=== PATIENT | male | born 1945 ===

== ENCOUNTER 2016-10-04 13:41 | Emergency (ER) | payer MEDICARE ==
[2016-10-04 13:53] VITALS: TEMP 98.1; O2SAT 99
[2016-10-04] MEDS ORDERED: Sodium Chloride 0.9% 1,000 ML IV ONE (14:25)
[2016-10-04] MEDS ORDERED: Sodium Chloride 0.9% 1,000 ML ONE (14:43)
[2016-10-04 14:52] LABS: BASO # 0.1 K/uL (0.0-0.2); BASO % 1.1 % (0.0-2.0); EOS # 0.5 K/uL (0.0-0.7); EOS % 7.4 % (0.0-4.0); HEMATOCRIT 44.7 % (35.0-51.0); LYMPH # 1.6 K/uL (1.0-4.3); MEAN CELL VOLUME 85.7 fL (80.0-94.0); MEAN CORPUSCULAR HEMOGLOBIN 28.1 pg (27.0-31.0); MEAN CORPUSCULAR HGB CONC 32.8 g/dL (33.0-37.0); MEAN PLATELET VOLUME 8.3 fL (7.2-11.7); MONO # 0.5 K/uL (0.0-0.8); MONO % 7.4 % (0.0-10.0); NRBC % 0.1 % (0.0-2.0); RED CELL DISTRIBUTION WIDTH 14.3 % (11.5-14.5); WHITE BLOOD COUNT 6.9 K/uL (4.8-10.8)
[2016-10-04 14:58] LABS: RBC URINE < 1 /hpf (0-3); URINE BILIRUBIN NEGATIVE (NEGATIVE); URINE BLOOD NEGATIVE (NEGATIVE); URINE COLOR Yellow (YELLOW); URINE GLUCOSE (UA) NORMAL (Normal); URINE KETONE NEGATIVE (NEGATIVE); URINE LEUKOCYTE ESTERASE NEG Leu/uL (Negative); URINE PROTEIN NEGATIVE (NEGATIVE); URINE UROBILINOGEN NORMAL mg/dL (0.2-1.0); WBC URINE 1 /hpf (0-5)
[2016-10-04 15:00] LABS: CHLORIDE 104 mmol/L (98-107)
[2016-10-04 15:01] LABS: POTASSIUM 4.6 mmol/L (3.6-5.2); SODIUM 141 mmol/L (132-148)
[2016-10-04 15:03] LABS: ALB/GLOB RATIO 1.2 (1.0-2.1); ALKALINE PHOSPHATASE 80 U/L (38-126); AST/SGOT 29 U/L (17-59); BLOOD UREA NITROGEN 19 mg/dL (9-20); CARBON DIOXIDE 28 mmol/L (22-30); GFR AFRICAN-AMERICAN > 60; TOTAL PROTEIN 7.9 g/dL (6.3-8.3)
[2016-10-04 15:04] LABS: ALT/SGPT 21 U/L (21-72); CALCIUM 9.1 mg/dl (8.6-10.4); GLUCOSE,RANDOM 97 mg/dL (75-110)
--- NOTE | 2016-10-04 15:08 | C.PDOC ---
History Of Present Illness 71 y/o male sent from [facility] (Formerly [facility]) with complains of LLQ abdominal pain for 2 days with bloody stools. Denies fever, nausea, vomiting, diarrhea or any other complaints. Time Seen by Provider: 10/04/16 14:05 Chief Complaint (Nursing): Abdominal Pain History Per: Patient History/Exam Limitations: no limitations Onset/Duration Of Symptoms: Days Current Symptoms Are (Timing): Better Severity: Mild Location Of Pain/Discomfort: LLQ Radiation Of Pain To:: None Quality Of Discomfort: "Pain" Associated Symptoms: denies: Fever, Nausea, Vomiting, Diarrhea Exacerbating Factors: None Alleviating Factors: None Recent travel outside of the [place]: No Past Medical History Reviewed: Historical Data, Nursing Documentation, Vital Signs Vital Signs: Last Vital Signs Temp 98.1 F 10/04/16 13:50 Pulse 60 10/04/16 17:08 Resp 18 10/04/16 17:08 BP 125/63 10/04/16 17:08 Pulse Ox 99 10/04/16 17:08 - Medical History PMH: No Chronic Diseases Surgical History: No Surg Hx Family History: States: Unknown Family Hx - Social History Hx Alcohol Use: No Hx Substance Use: No Review Of Systems Constitutional: Negative for: Fever Cardiovascular: Negative for: Chest Pain Respiratory: Negative for: Shortness of Breath Gastrointestinal: Positive for: Abdominal Pain, Hematochezia. Negative for: Nausea, Vomiting, Diarrhea, Constipation Musculoskeletal: Negative for: Back Pain Skin: Negative for: Rash Neurological: Negative for: Weakness, Numbness, Headache, Dizziness Physical Exam - Physical Exam Appears: Non-toxic, No Acute Distress Skin: Warm, Dry, No Diaphoretic, No Pale, No Rash Head: Atraumatic, Normacephalic Eye(s): bilateral: Normal Inspection, EOMI Nose: Normal, No Flaring Oral Mucosa: Moist Neck: Normal ROM, Supple Chest: Symmetrical, No Tenderness Cardiovascular: Rhythm Regular, No Murmur Respiratory: Normal Breath Sounds, No Rales, No Rhonchi, No Wheezing Gastrointestinal/Abdominal: Bowel Sounds (active), Soft, Tenderness (LLQ), No Mass, No Distention, No Guarding, No Rebound Rectal: Rectal Tone (normal), No Blood Streaked Stool, No Hemorrhoids Extremity: Bilateral: Atraumatic, Normal Color And Temperature, Normal ROM Neurological/Psych: Oriented x3, Normal Speech ED Course And Treatment - Laboratory Results Result Diagrams: 10/04/16 14:45 10/04/16 14:45 Lab Interpretation: No Acute Changes O2 Sat by Pulse Oximetry: 99 (room air) Pulse Ox Interpretation: Normal - CT Scan/US CT abdomen Other Rad Studies (CT/US): Read By Radiologist, Radiology Report Reviewed CT/US Interpretation: Accession No. : [id number]. Patient Name / ID : RYLIE STEWART / [id number]. Exam Date : 10/04/2016 15:58:10 ( Approved ). Study Comment : Sex / Age : M / 71Y. Creator : Lyssa Guzman MD. Dictator : Lyssa Guzman MD. Supervisor Slashing Department : Director Of Critical Care : Lyssa Guzman MD. Approver2 : Report Date : 10/04/2016 16:33:04. My Comment : . PROCEDURE: CT Abdomen and Pelvis with contrast. HISTORY: LLQ abd pain. COMPARISON: None available. TECHNIQUE: Contrast dose: 100 cc Visipaque 320. Radiation dose: Total exam DLP = 403.71 mGy-cm. This CT exam was performed using one or more of the following dose reduction techniques: Automated exposure control, adjustment of the mA and/or kV according to patient size, and/or use of iterative reconstruction technique. FINDINGS: LOWER THORAX : No visible consolidation, pleural effusion, or pneumothorax. Small hiatal hernia/distal esophageal wall thickening. LIVER: Unremarkable. GALLBLADDER AND BILE DUCTS: Punctate dependent calcification within the gallbladder, likely gallstone. PANCREAS: Unremarkable. SPLEEN: Unremarkable. ADRENALS: Unremarkable. KIDNEYS AND URETERS: The kidneys enhance symmetrically. No evidence of hydronephrosis or obstructing calculus. VASCULATURE: No aortic aneurysm. BOWEL: The stomach is incompletely distended limiting evaluation for gastric pathology. APPENDIX: The appendix appears within normal limits of caliber. No secondary signs of acute appendicitis. PERITONEUM: No significant free fluid. No definite free air. LYMPH NODES: No bulky adenopathy identified. BLADDER: Under distended urinary bladder limits evaluation. REPRODUCTIVE: Heterogeneous enlarged prostate gland measures approximately 5.5 x 5.9 cm. BONES: No acute osseous abnormality is detected. OTHER FINDINGS: None. IMPRESSION: Enlarged heterogeneous prostate gland. Recommend correlation with PSA. Suspect tiny gallstone. Mild to moderate constipation. Medical Decision Making Medical Decision Making: Plan: * CT abdomen * labs * UA * IV fluids * protonix Progress: Labs reviewed and unremarkable, H/H normal. Stool occult was positive. CT IMPRESSION: Enlarged heterogeneous prostate gland. Recommend correlation with PSA. Patient remained well, non-toxic and in no acute distress. He reports no pain, abdomen remains soft and nontender. Vital signs stable. No signs of hemodynamic instability. Patient feels comfortable going home and will be discharge. Patient instructed to closely follow up with GI. Disposition Counseled Patient/Family Regarding: Need For Followup, Rx Given - Disposition Referrals: Maday Weir [Staff Provider] - Disposition: HOME/ ROUTINE Disposition Time: 16:44 Condition: STABLE Additional Instructions: Please follow up with GI doctor for further evaluation Follow up with your primary medical doctor or clinic for further evaluation. Take medications as prescribed. Return to the emergency department at any time if symptoms persist or worsen. Instructions: Rectal Bleeding (DC) - POA Present On Arrival: None - Clinical Impression Clinical Impression: Rectal bleeding - PA / COUNTERSINKER / Resident Statement MD/DO has reviewed & agrees with the documentation as recorded. - Scribe Statement The provider has reviewed the documentation as recorded by the Alec Tate All medical record entries made by the Alec were at my direction and personally dictated by me. I have reviewed the chart and agree that the record accurately reflects my personal performance of the history, physical exam, medical decision making, and the department course for this patient. I have also personally directed, reviewed, and agree with the discharge instructions and disposition.
[2016-10-04] MEDS ORDERED: Iodixanol 320 MG/ML 100 ML BOTTLE IV ONE (15:49)
--- NOTE | 2016-10-04 16:34 | CT ---
PROCEDURE: CT Abdomen and Pelvis with contrast HISTORY: LLQ abd pain COMPARISON: None available TECHNIQUE: Contrast dose: 100 cc Visipaque 320 Radiation dose: Total exam DLP = 403.71 mGy-cm. This CT exam was performed using one or more of the following dose reduction techniques: Automated exposure control, adjustment of the mA and/or kV according to patient size, and/or use of iterative reconstruction technique. FINDINGS: LOWER THORAX: No visible consolidation, pleural effusion, or pneumothorax. Small hiatal hernia/distal esophageal wall thickening. LIVER: Unremarkable. GALLBLADDER AND BILE DUCTS: Punctate dependent calcification within the gallbladder, likely gallstone. PANCREAS: Unremarkable. SPLEEN: Unremarkable. ADRENALS: Unremarkable. KIDNEYS AND URETERS: The kidneys enhance symmetrically. No evidence of hydronephrosis or obstructing calculus. VASCULATURE: No aortic aneurysm. BOWEL: The stomach is incompletely distended limiting evaluation for gastric pathology. APPENDIX: The appendix appears within normal limits of caliber. No secondary signs of acute appendicitis. PERITONEUM: No significant free fluid. No definite free air. LYMPH NODES: No bulky adenopathy identified. BLADDER: Under distended urinary bladder limits evaluation. REPRODUCTIVE: Heterogeneous enlarged prostate gland measures approximately 5.5 x 5.9 cm. BONES: No acute osseous abnormality is detected. OTHER FINDINGS: None. IMPRESSION: Enlarged heterogeneous prostate gland. Recommend correlation with PSA. Suspect tiny gallstone. Mild to moderate constipation.
[2016-10-04 17:09] VITALS: BP 125/63; PULSE 60; RESP 18
== END 2016-10-04 17:09 | disposition home or self-care (01) ==
LOC: C.ER 13:41
DX: K62.5 Hemorrhage of anus and rectum (principal)
CPT/HCPCS: 74177; 80053; 81001; 83690; 85025; 96361; 96374; 99284; C9113; G0328; J7040; Q9967